=== PATIENT | female | born 2000 | race Caucasian/White ===

== ENCOUNTER 2023-12-11 17:52 | Outpatient (CLI) | payer BC, SELFPAY ==
[2023-12-11 23:20] LABS: Chlamydia DNA Amplified* NOT DETECTED (No Detected); GC DNA Amplified* NOT DETECTED (No Detected)
== END 2023-12-11 17:53 | disposition home or self-care (01) ==
PROVIDERS: PCP Physician Assistant; Visit Provider Physician Assistant
DX: Z11.3 Encounter for screening for infections with a predominantly sexual mode of transmission (principal)
CPT/HCPCS: 86703; 87491; 87536; 87591